=== PATIENT | female | born 1945 | race Caucasian/White ===

== ENCOUNTER 2016-12-23 07:53 | Day surgery (SDC) | payer MEDICARE, OTHER ==
[2016-06-08 07:07] VITALS: BMI 30.2
[2016-12-23 09:02] VITALS: O2SAT 99
--- NOTE | 2016-12-23 10:34 | CP.SDSHP ---
Same Day Surgery H & P - History Proposed Procedure: US guided FNA of thyroid nodules Pre-Op Diagnosis: Thyroid nodules - Allergies Allergies: Allergies PORK Allergy (Intermediate, Verified 01/09/14 09:23) RASH - Physical Exam Vital Signs: Vital Signs 12/23/16 08:28 Temperature 97.8 F Pulse Rate 51 L Respiratory 20 Rate Blood Pressure 145/79 O2 Sat by Pulse 99 Oximetry Mental Status: Alert & Oriented x3 - Impression Impression: Pt with bilateral complex thyroid nodules. Plan US guided FNA. Pt. Evaluated Today:Candidate for Anesthesia & Procedure: No - Date & Time Date: 12/23/16 Time: 10:25 Short Stay Discharge - Short Stay Discharge Admitting Diagnosis/Reason for Visit: ABNORMAL ULTRASOUND Disposition: HOME/ ROUTINE
--- NOTE | 2016-12-23 10:36 | PCM.SURG1 ---
Surgeon's Initial Post Op Note - Surgeon's Notes Surgeon: Syd Ramirez MD Seal Extrusion Operator: NONE Type of Anesthesia: Local Pre-Operative Diagnosis: Thyroid nodules Operative Findings: Calcified 2 cm right thyroid nodule, complex and partially calcified 2.9 cm left thyroid nodule. Post-Operative Diagnosis: Thyroid nodules Operation Performed: US guided FNA Specimen/Specimens Removed: 25 gauge FNA x 4 passes per nodule Estimated Blood Loss: EBL {In ML}: 1 Blood Products Given: N/A Drains Used: No Drains Post-Op Condition: Good Date of Surgery/Procedure: 12/23/16 Time of Surgery/Procedure: 10:30
[2016-12-23 11:07] VITALS: BP 138/62; PULSE 52; RESP 15; TEMP 97.4
--- NOTE | 2016-12-24 15:19 | US ---
PROCEDURE: Date of Procedure: 12/23/2016 PROCEDURE: 1. Ultrasound guided FNA of left thyroid nodule, CPT 99496 2. Ultrasound guided FNA of RIGHT thyroid nodule, 3. Ultrasound guidance for FNA, [id number] Medications: 5 cc 1% Lidocaine HISTORY: Enlarged thyroid nodules. TECHNIQUE: Following informed consent and procedure time-out, a limited ultrasound patient's neck confirmed the presence of a1.2 cm complex right thyroid nodule which is partially calcified. Also seen is a 2.4 centimeter left thyroid nodule which is also partially calcified. After the patient's neck was prepped and draped in the usual sterile fashion, the skin was anesthetized with 1% lidocaine. Ultrasound-guided fine needle aspiration was then performed of the dominant left thyroid nodule. A total of 4 passes were made into the nodule with 25 gauge needle under ultrasound guidance. The FNA specimen was sent for routine pathology. Ultrasound guided FNA was then performed of the dominant right thyroid nodule. Again 4 passes were made into the nodule with 25 gauge needle. The FNA specimen was sent for routine pathology. Post biopsy ultrasound showed no hematoma. IMPRESSION: Ultrasound-guided FNA of the dominant right and left thyroid nodules.
== END 2016-12-23 11:20 | disposition home or self-care (01) ==
LOC: C.SPRAD 07:53
PROVIDERS: ATTEND Radiology Vascular & Interventional Radiology
DX: E04.2 Nontoxic multinodular goiter (principal)